=== PATIENT | male | born 1970 ===

== ENCOUNTER 2020-11-15 17:33 | Inpatient (IN) | payer SELFPAY ==
[~2020-11-15] VITALS: Ht 152.4 cm; Wt 72.6 kg
[2020-11-15] MEDS ORDERED: PROAIR HFA8.5 G1 INH (17:47)
[2020-11-15] MEDS ORDERED: MONODOX100 MG PO (17:48)
[2020-11-15] MEDS ORDERED: PREDNISONE20 MG PO (17:49)
[2020-11-15 18:07] LABS: BASOPHILS 0.1 % (0-2); EOSINOPHILS 0 % (0-7); HEMATOCRIT 44.4 % (42.0-54.0); LYMPHOCYTES 4.8 % (15-50); MCH 30.3 pg (26.0-34.0); MCHC 33.8 g/dL (31.0-37.0); MCV 89.5 fL (80.0-100.0); MEAN PLATELET VOLUME 7.2 fL (7.4-10.4); MONOCYTES 6.4 % (2-11); NEUTROPHILS 88.7 % (40-80); PLATELET COUNT 295 10x3/uL (130-400); RBC 4.97 10x6/uL (4.20-6.10); RDW 13.2 % (11.5-14.5); WBC 11.2 10x3/uL (4.8-10.8)
[2020-11-15 18:22] LABS: CALC OSMOLALITY 288 mosm/kg (275-300); CALCIUM 8.3 mg/dL (8.5-10.1); CARBON DIOXIDE 24.8 mmol/L (21.0-32.0); CHLORIDE - SERUM 106 mmol/L (98-107); CREATININE - SERUM 0.9 mg/dL (0.6-1.3); GLUCOSE 184 mg/dL (74-106); POTASSIUM - SERUM 3.9 mmol/L (3.5-5.1); SODIUM 140 mmol/L (136-145); UREA NITROGEN 26 mg/dL (7-18); eGFR NON AFRICAN AMERICAN > 90 mL/min (90-120)
[2020-11-15 18:40] LABS: ALBUMIN 2.6 g/dL (3.4-5.0); ALKALINE PHOSPHATASE 83 U/L (30-120); ALT (SGPT) 61 U/L (10-68); BILIRUBIN - TOTAL 0.33 mg/dL (0.2-1.3); CKMB 0.7 U/L (0.0-3.6); CREATINE KINASE 64 UL (21-232); PRO BNP 252 pg/mL (0-125); PROTEIN - SERUM 8.2 g/dL (6.4-8.2)
[2020-11-15 19:07] LABS: TROPONIN-I < 0.017 ng/mL (0.000-0.060)
[2020-11-15 19:10] VITALS: BP 124/71
[2020-11-15 19:12] LABS: INR 1.2 (0.85-1.17); PROTIME 14.1 SECONDS (11.6-15.0)
[2020-11-15 19:13] LABS: D-DIMER-QUANTITATIVE 0.39 ug/mLFEU (0.20-0.54)
[2020-11-15 19:20] LABS: SARS-CoV-2 ANTIGEN NEGATIVE- SARS-COV-2 (NEGATIVE)
--- NOTE | 2020-11-15 19:49 | NUR ---
TITRATED PT O2 TO 2L PER DR MAKI
[2020-11-15 20:12] VITALS: BP 127/75
[2020-11-15 21:15] VITALS: BP 126/77
[2020-11-15 22:15] VITALS: BP 121/72
[2020-11-15 23:15] VITALS: BP 123/70
[2020-11-16] VITALS (9 sets, daily range): BP systolic 125–164; BP diastolic 65–80; BMI 31.3
--- NOTE | 2020-11-16 01:42 | NUR ---
PT PULSE OX WENT DOWN TO 85%, INCREASED PT O2 BACK TO 4L
[2020-11-16 05:47] LABS: BASOPHILS 0.3 % (0-2); EOSINOPHILS 0 % (0-7); HEMATOCRIT 44.8 % (42.0-54.0); LYMPHOCYTES 7.4 % (15-50); MCH 30.1 pg (26.0-34.0); MCHC 33.4 g/dL (31.0-37.0); MCV 90.1 fL (80.0-100.0); MEAN PLATELET VOLUME 7.4 fL (7.4-10.4); MONOCYTES 7.3 % (2-11); PLATELET COUNT 281 10x3/uL (130-400); RBC 4.97 10x6/uL (4.20-6.10); RDW 13.1 % (11.5-14.5)
[2020-11-16 05:56] LABS: WBC 7.5 10x3/uL (4.8-10.8)
[2020-11-16 06:07] LABS: ALBUMIN 2.6 g/dL (3.4-5.0); ALKALINE PHOSPHATASE 86 U/L (30-120); ALT (SGPT) 58 U/L (10-68); BILIRUBIN - TOTAL 0.36 mg/dL (0.2-1.3); CALC OSMOLALITY 285 mosm/kg (275-300); CALCIUM 8.5 mg/dL (8.5-10.1); CARBON DIOXIDE 24.9 mmol/L (21.0-32.0); CHLORIDE - SERUM 106 mmol/L (98-107); CREATININE - SERUM 0.7 mg/dL (0.6-1.3); GLUCOSE 157 mg/dL (74-106); MAGNESIUM - SERUM 2.2 mg/dL (1.8-2.4); POTASSIUM - SERUM 4.4 mmol/L (3.5-5.1); PROTEIN - SERUM 8.1 g/dL (6.4-8.2); SODIUM 140 mmol/L (136-145); UREA NITROGEN 23 mg/dL (7-18); eGFR NON AFRICAN AMERICAN > 90 mL/min (90-120)
--- NOTE | 2020-11-16 07:30 | NUR ---
ASSUMED CARE OF PT. A/A/OX3. RESP EVEN/UNLABORED. SKIN W/D/P. DENIES PAIN OR OTHER C/O "I FEEL BETTER. I ONLY GET SHORT OF AIR WHEN I MOVE AROUND"
--- NOTE | 2020-11-16 08:05 | NUR ---
REPORT TO GISELA SUAREZ
--- NOTE | 2020-11-16 09:10 | NUR ---
ARRIVED TO FLOOR. ALERT AND ORIENTED.
--- NOTE | 2020-11-16 20:00 | NUR ---
REPORT RECEIVED. PT A&O, UP IN BED WATCHING TV. NO S/S OF DISTRESS OBSERVED. RR EVEN & UNLABORED ON 2L. SR 63 ON TELE. L FA 20G INFUSING ATB. BED LOCKED AND LOWERED, CL IN REACH. WILL CONT POC.
[2020-11-17 01:34] VITALS: BP 143/87
--- NOTE | 2020-11-17 02:05 | NUR ---
PT DESAT TO 87% ON 2L. O2 TRITRATED UP TO 8LHF TO MAINTAIN SAT > 93%. O2 SAT 94% AT THIS TIME. RT NOTIFIED.
[2020-11-17 02:36] LABS: BILIRUBIN NEGATIVE (NEGATIVE); KETONE NEGATIVE mg/dL (< 1+); NITRITE NEGATIVE (NEGATIVE); PH 6.5 (5.0-8.0); UROBILINOGEN NORMAL mg/dL (< 2); WHITE CELLS - URINE 1 HPF (0-1)
[2020-11-17 06:16] LABS: BASOPHILS 0.1 % (0-2); EOSINOPHILS 0 % (0-7); HEMATOCRIT 41.9 % (42.0-54.0); HEMOGLOBIN 14.3 g/dL (13.5-17.5); LYMPHOCYTES 7.6 % (15-50); MCH 30.5 pg (26.0-34.0); MCHC 34.2 g/dL (31.0-37.0); MCV 89.1 fL (80.0-100.0); MEAN PLATELET VOLUME 7.3 fL (7.4-10.4); MONOCYTES 6.6 % (2-11); NEUTROPHILS 85.7 % (40-80); PLATELET COUNT 278 10x3/uL (130-400); RDW 12.9 % (11.5-14.5); WBC 7.4 10x3/uL (4.8-10.8)
[2020-11-17 06:31] LABS: ALBUMIN 2.4 g/dL (3.4-5.0); ALKALINE PHOSPHATASE 85 U/L (30-120); ALT (SGPT) 68 U/L (10-68); CALC OSMOLALITY 275 mosm/kg (275-300); CALCIUM 8.1 mg/dL (8.5-10.1); CARBON DIOXIDE 22.9 mmol/L (21.0-32.0); CHLORIDE - SERUM 103 mmol/L (98-107); CREATININE - SERUM 0.7 mg/dL (0.6-1.3); GLUCOSE 156 mg/dL (74-106); MAGNESIUM - SERUM 1.8 mg/dL (1.8-2.4); POTASSIUM - SERUM 4.4 mmol/L (3.5-5.1); PROTEIN - SERUM 7.5 g/dL (6.4-8.2); SODIUM 135 mmol/L (136-145); UREA NITROGEN 20 mg/dL (7-18); eGFR NON AFRICAN AMERICAN > 90 mL/min (90-120)
--- NOTE | 2020-11-17 07:15 | NUR ---
PT LYING IN BED WITH HOB ELEVATED 30 DEGREES. RESP EVEN AND UNLABORED. AAO X4. O2 VIA HF NC AT 11 LPM. DENIES NEEDS AT THIS TIME. CLIR. BED IN LOWEST POSITION. SIDE RAILS X2
[2020-11-17 08:49] VITALS: BP 142/79
[2020-11-17 11:07] VITALS: BP 113/71
[2020-11-17 15:25] VITALS: BP 115/71
--- NOTE | 2020-11-17 18:51 | NUR ---
I have reviewed this patient and I concur with the Shift Assessment completed by the Licensed Practical Nurse today this shift.
--- NOTE | 2020-11-17 19:59 | NUR ---
REPORT CALLED FROM ROB IN LAB. PT PCR IS NEGATIVE.
[2020-11-17 20:00] VITALS: BP 115/75
[2020-11-18 00:36] VITALS: BP 114/71
[2020-11-18 04:58] VITALS: BP 139/76
[2020-11-18 06:41] LABS: BASOPHILS 0 % (0-2); EOSINOPHILS 0 % (0-7); HEMATOCRIT 41.6 % (42.0-54.0); HEMOGLOBIN 14.1 g/dL (13.5-17.5); MCH 30.3 pg (26.0-34.0); MCV 89.1 fL (80.0-100.0); MEAN PLATELET VOLUME 7.7 fL (7.4-10.4); MONOCYTES 6.1 % (2-11); NEUTROPHILS 82.9 % (40-80); PLATELET COUNT 271 10x3/uL (130-400); RBC 4.66 10x6/uL (4.20-6.10); RDW 12.4 % (11.5-14.5)
[2020-11-18 07:14] LABS: ALBUMIN 2.5 g/dL (3.4-5.0); ALKALINE PHOSPHATASE 88 U/L (30-120); ALT (SGPT) 66 U/L (10-68); BILIRUBIN - TOTAL 0.39 mg/dL (0.2-1.3); CALC OSMOLALITY 275 mosm/kg (275-300); CALCIUM 7.9 mg/dL (8.5-10.1); CHLORIDE - SERUM 103 mmol/L (98-107); CREATININE - SERUM 0.7 mg/dL (0.6-1.3); GLUCOSE 155 mg/dL (74-106); MAGNESIUM - SERUM 1.9 mg/dL (1.8-2.4); POTASSIUM - SERUM 4.8 mmol/L (3.5-5.1); PROTEIN - SERUM 6.9 g/dL (6.4-8.2); SODIUM 136 mmol/L (136-145); UREA NITROGEN 15 mg/dL (7-18); eGFR NON AFRICAN AMERICAN > 90 mL/min (90-120)
[2020-11-18 08:31] VITALS: BP 116/69
--- NOTE | 2020-11-18 09:55 | NUR ---
AAOX4 UPON ENTERING, IN BEDSIDE CHAIR. ADMINISTERED MEDICATION, NO DIFFICULTIES. DENIES NEEDS AT THIS TIME. WILL CONTINUE POC. ASSESSMENT PERFORMED
[2020-11-18 11:54] VITALS: BP 118/70
--- NOTE | 2020-11-18 12:58 | NUR ---
I have reviewed this patient and I concur with the Shift Assessment completed by the Licensed Practical Nurse today this shift.
[2020-11-18 14:35] LABS: BILIRUBIN NEGATIVE (NEGATIVE); KETONE NEGATIVE mg/dL (< 1+); NITRITE NEGATIVE (NEGATIVE); SQUAMOUS EPITHELIAL <1 HPF (0-4); UROBILINOGEN NORMAL mg/dL (< 2); WHITE CELLS - URINE <1 HPF (0-1)
[2020-11-18 16:05] VITALS: BP 118/68
[2020-11-18 20:00] VITALS: BP 117/64
[2020-11-19 01:18] VITALS: BP 124/77
[2020-11-19 05:26] LABS: BASOPHILS 0.1 % (0-2); EOSINOPHILS 0 % (0-7); HEMATOCRIT 41.3 % (42.0-54.0); LYMPHOCYTES 7.7 % (15-50); MCHC 33.9 g/dL (31.0-37.0); MCV 88.6 fL (80.0-100.0); MEAN PLATELET VOLUME 7.5 fL (7.4-10.4); MONOCYTES 6.1 % (2-11); NEUTROPHILS 86.1 % (40-80); PLATELET COUNT 299 10x3/uL (130-400); RBC 4.66 10x6/uL (4.20-6.10)
[2020-11-19 05:33] LABS: WBC 8.9 10x3/uL (4.8-10.8)
--- NOTE | 2020-11-19 06:00 | NUR ---
PT HAS RESTED THROUGH THE NIGHT. ALL ABT INFUSED. PT WITH NO C/O. INDEPENDENT GETTING UP TO BATHROOM. ALL ORDERED MEDICATIONS GIVEN. CALL LIGHT IN REACH. PT SAYS HE IS BEGINNING TO FEEL BETTER.
[2020-11-19 06:05] LABS: ALBUMIN 2.4 g/dL (3.4-5.0); ALKALINE PHOSPHATASE 83 U/L (30-120); ALT (SGPT) 58 U/L (10-68); BILIRUBIN - TOTAL 0.37 mg/dL (0.2-1.3); CALC OSMOLALITY 280 mosm/kg (275-300); CALCIUM 8.2 mg/dL (8.5-10.1); CARBON DIOXIDE 25.7 mmol/L (21.0-32.0); CHLORIDE - SERUM 104 mmol/L (98-107); CREATININE - SERUM 0.7 mg/dL (0.6-1.3); GLUCOSE 155 mg/dL (74-106); MAGNESIUM - SERUM 2.1 mg/dL (1.8-2.4); POTASSIUM - SERUM 4.1 mmol/L (3.5-5.1); PROTEIN - SERUM 6.9 g/dL (6.4-8.2); SODIUM 138 mmol/L (136-145); UREA NITROGEN 17 mg/dL (7-18); eGFR NON AFRICAN AMERICAN > 90 mL/min (90-120)
[2020-11-19 06:14] VITALS: BP 124/77
--- NOTE | 2020-11-19 07:00 | NUR ---
RECEIVED REPORT. ASSUMED CARE OF PATIENT. CALL LIGHT WITHIN REACH. PATIENT LYING IN BED WITH EYES OPEN, RESP EVEN AND UNLABORED, DENIES NEEDS. BEDSIDE SHIFT REPORT COMPLETE, WHITE BOARD UPDATED. NO DISTRESS.
--- NOTE | 2020-11-19 07:30 | NUR ---
O2 SAT 88-89% ON 8L HFNC, INCREASED O2 TO 10L, SATS INCREASED TO 91-92%. LUNGS CLEAR, 1250 DEMONSTRATED ON IS. NO DISTRESS.
[2020-11-19 08:00] VITALS: BP 117/75
[2020-11-19 12:00] VITALS: BP 109/65
[2020-11-19 14:00] VITALS: BP 118/65
[2020-11-19 20:28] VITALS: BP 130/78
[2020-11-20] VITALS (7 sets, daily range): BP systolic 114–147; BP diastolic 62–88
[2020-11-20 06:34] LABS: BASOPHILS 0.1 % (0-2); EOSINOPHILS 0 % (0-7); HEMATOCRIT 40.2 % (42.0-54.0); HEMOGLOBIN 13.5 g/dL (13.5-17.5); LYMPHOCYTES 6.1 % (15-50); MCH 29.8 pg (26.0-34.0); MCHC 33.5 g/dL (31.0-37.0); MEAN PLATELET VOLUME 7.5 fL (7.4-10.4); MONOCYTES 6.9 % (2-11); NEUTROPHILS 86.9 % (40-80); PLATELET COUNT 332 10x3/uL (130-400); RBC 4.52 10x6/uL (4.20-6.10)
--- NOTE | 2020-11-20 06:35 | NUR ---
I have reviewed this patient and I concur with the Shift Assessment completed by the Licensed Practical Nurse today this shift.
[2020-11-20 06:38] LABS: WBC 11.2 10x3/uL (4.8-10.8)
[2020-11-20 06:51] LABS: ALBUMIN 2.4 g/dL (3.4-5.0); ALKALINE PHOSPHATASE 90 U/L (30-120); ALT (SGPT) 61 U/L (10-68); BILIRUBIN - TOTAL 0.31 mg/dL (0.2-1.3); CALC OSMOLALITY 281 mosm/kg (275-300); CALCIUM 8.2 mg/dL (8.5-10.1); CARBON DIOXIDE 26.8 mmol/L (21.0-32.0); CHLORIDE - SERUM 105 mmol/L (98-107); CREATININE - SERUM 0.7 mg/dL (0.6-1.3); GLUCOSE 135 mg/dL (74-106); MAGNESIUM - SERUM 2.1 mg/dL (1.8-2.4); POTASSIUM - SERUM 4.2 mmol/L (3.5-5.1); PROTEIN - SERUM 6.6 g/dL (6.4-8.2); SODIUM 139 mmol/L (136-145); UREA NITROGEN 17 mg/dL (7-18); eGFR NON AFRICAN AMERICAN > 90 mL/min (90-120)
--- NOTE | 2020-11-21 01:16 | NUR ---
I have reviewed this patient and I concur with the Shift Assessment completed by the Licensed Practical Nurse today this shift.
[2020-11-21 04:06] VITALS: BP 133/84
[2020-11-21 05:31] LABS: BASOPHILS 0.1 % (0-2); EOSINOPHILS 0 % (0-7); HEMATOCRIT 38.9 % (42.0-54.0); HEMOGLOBIN 13.3 g/dL (13.5-17.5); LYMPHOCYTES 7.2 % (15-50); MCH 30.2 pg (26.0-34.0); MCHC 34.1 g/dL (31.0-37.0); MCV 88.5 fL (80.0-100.0); MONOCYTES 7.1 % (2-11); NEUTROPHILS 85.6 % (40-80); PLATELET COUNT 339 10x3/uL (130-400); RDW 13.1 % (11.5-14.5); WBC 11.6 10x3/uL (4.8-10.8)
[2020-11-21 05:43] LABS: ALBUMIN 2.3 g/dL (3.4-5.0); ALKALINE PHOSPHATASE 87 U/L (30-120); ALT (SGPT) 65 U/L (10-68); BILIRUBIN - TOTAL 0.37 mg/dL (0.2-1.3); CALC OSMOLALITY 282 mosm/kg (275-300); CALCIUM 8.1 mg/dL (8.5-10.1); CARBON DIOXIDE 29.2 mmol/L (21.0-32.0); CHLORIDE - SERUM 105 mmol/L (98-107); CREATININE - SERUM 0.7 mg/dL (0.6-1.3); GLUCOSE 135 mg/dL (74-106); PROTEIN - SERUM 6.4 g/dL (6.4-8.2); SODIUM 139 mmol/L (136-145); UREA NITROGEN 21 mg/dL (7-18); eGFR NON AFRICAN AMERICAN > 90 mL/min (90-120)
[2020-11-21 10:14] VITALS: BP 114/74
[2020-11-21 10:54] VITALS: Ht 152.4 cm; Wt 72.6 kg
[2020-11-21] MEDS ORDERED: TESSALON PERLE100 MG PO (14:55)
[2020-11-21] MEDS ORDERED: IPRAT-ALBUT 0.5-3 ML UPD (14:55)
[2020-11-21] MEDS ORDERED: AZITHROMYCIN500 MG PO (14:56)
[2020-11-21] MEDS ORDERED: OMNICEF300 MG PO (14:56)
[2020-11-21] MEDS ORDERED: FLORAJEN DIGES1 EACH PO (14:56)
[2020-11-21] MEDS ORDERED: PROTONIX40 MG PO (14:56)
[2020-11-21] MEDS ORDERED: MUCINEX600 MG PO (14:56)
[2020-11-21] MEDS ORDERED: PULMICORT0.5 MG/21 UPD (14:56)
[2020-11-21] MEDS ORDERED: PREDNISONE10 MG PO (14:57)
[2020-11-21 15:00] VITALS: BP 120/72
--- NOTE | 2020-11-21 18:28 | NUR ---
DISCHARGE INSTRUCTIONS REVIEWED AND SIGNED WITH PT, ALL QUESTIONS ANSWERED, PT VERBALIZED UNDERSTANDING, IV REMOVED, TIP INTACT, TELE REMOVED AND TAKEN BACK TO ICU, PT CALLED FOR RIDE FROM FAMILY
--- NOTE | 2020-11-21 19:05 | NUR ---
FAMILY HERE TO PICK PT UP, ASSISTED OUT VIA WHEELCHAIR IN STABLE CONDITION, NO SIGNS OF DISTRESS
[2020-11-22 09:13] LABS: ANA REFLEX - DIRECT Negative (Negative)
== END 2020-11-21 19:07 | disposition home or self-care (01) | DRG 193 ==
LOC: D.ER 17:33 → D.M2 21:04 → D.EDHOLD 21:04 → D.M2 11-16 05:37
PROVIDERS: Emergency Medicine; Family Medicine; Internal Medicine Pulmonary Disease; ADMIT Family Medicine; ATTEND Family Medicine
DX: J18.9 Pneumonia, unspecified organism (principal); J96.01 Acute respiratory failure with hypoxia; Z20.822 Contact with and (suspected) exposure to COVID-19; R74.01 Elevation of levels of liver transaminase levels